=== PATIENT | male | born 1935 | race Caucasian/White ===

== ENCOUNTER → 2022-01-29 | Outpatient (CLI) | payer MEDICARE | LOC: M RAD 16:30 | PROVIDERS: ATTEND Internal Medicine Cardiovascular Disease | DX: R06.02 Shortness of breath (principal) ==

== ENCOUNTER → 2022-02-07 | Outpatient (CLI) | payer MEDICARE | LOC: EDUNIT# 02-06 15:00 → M CARPUL 13:40 | PROVIDERS: ATTEND Internal Medicine Cardiovascular Disease | DX: R06.02 Shortness of breath (principal) ==

== ENCOUNTER → 2022-02-15 | Outpatient (CLI) | payer MEDICARE | LOC: M SLEEP HO 02-07 13:32 → EDUNIT# 03-13 09:30 | PROVIDERS: ATTEND Internal Medicine Cardiovascular Disease | DX: J96.91 Respiratory failure, unspecified with hypoxia (principal); J98.4 Other disorders of lung ==

== ENCOUNTER → 2022-03-11 | Outpatient (CLI) | payer MEDICARE | LOC: M CARPUL 08:41 | PROVIDERS: ATTEND Internal Medicine Cardiovascular Disease | DX: R06.02 Shortness of breath (principal); I45.19 Other right bundle-branch block ==